=== PATIENT | female | born 1965 | race African-American/Black ===

== ENCOUNTER 2019-06-01 06:35 | Observation (INO) ==
[2019-06-01] MEDS ORDERED: ASPIRIN 325 MG TABLET PO STA (07:15)
[2019-06-01 07:52] LABS: Basophils % 0.6 % (0.0-0.8); Eosinophils # 0.1 10*3/uL (0.0-0.87); Eosinophils % 1.4 % (0.00-10.9); Hematocrit 42.5 VOL% (35.7-47.0); Hemoglobin 13.9 GM/DL (12.0-16.0); Immature Granulocytes % 0.3 %; Immature Granulocytes Absolute 0.01 #; Lymphocytes # 1.5 10*3/uL (1.4-4.0); Lymphocytes % 41.8 % (21.3-54.2); Mean Corpuscular HGB Conc 32.7 GM/DL (32-36); Mean Corpuscular Volume 84.5 FL (87-102); Mean Platelet Volume 9.9 FL (9.6-12.0); Neutrophils % 45.9 % (38.7-73.9); Platelet Count 237 T/CUMM (130-400); Red Blood Count 5.03 MC/CUMM (3.8-5.5); Red Cell Distribution Width 11.9 % (9.3-17.3); White Blood Count 3.6 T/CUMM (4-12)
[2019-06-01 08:11] LABS: Bilirubin,Total 0.9 MG/DL (0.2-1.0); Calcium 9.3 MG/DL (8.5-10.1); Osmolality,Calculated 284.1 MOS/KG (273-304)
[2019-06-01] MEDS ORDERED: SODIUM CHLORIDE 0.9% 1,000 ML IV STA (08:58)
[2019-06-01 09:01] LABS: Apearance,Urine CLEAR (Clear); Bilirubin,Urine Negative (Negative); Blood, Urine Negative (Negative); Glucose,Urine (UA) Negative (Negative); Ketones,Urine Negative (Negative); Mucus,Urine Occasional /LPF (Occasional); Nitrite,Urine Negative (Negative); Protein,Urine Negative; RBC,Urine 1 /HPF (0-4); Squamous Epithelial Cell,Urine Occasional /HPF (0-10); Urine Color Straw (Yellow); Urine Specific Gravity 1.046 (1.001-1.035); Urine Urobilinogen < 2.0 EU/DL (0.2-1.0)
[2019-06-01] MEDS ORDERED: traMADol 50 MG TABLET ONE (09:57)
[2019-06-01] MEDS ORDERED: traMADol 50 MG TABLET PO STA (09:59)
[2019-06-01] MEDS ORDERED: DOCUSATE SODIUM 100 MG CAPSULE PO PRN (10:20)
[2019-06-01] MEDS ORDERED: LORazepam 1 MG TABLET PO PRN (10:43)
[2019-06-01] MEDS ORDERED: LORazepam 2 MG/1 ML VIAL IV STA (10:43)
[2019-06-01] MEDS: ENOXAPARIN 40 MG/0.4 ML SYRINGE SUBCUT SCH (13:00)
[2019-06-01] MEDS: METOPROLOL TARTRATE 25 MG TABLET PO SCH ×2 (13:05→22:11)
[2019-06-01] MEDS: SODIUM CHLORIDE 0.9% 1,000 ML IV SCH (13:05)
[2019-06-01] MEDS: CIPROFLOXACIN INJ 400 MG in PREMIX 1 EACH IV SCH (13:05)
[2019-06-01] MEDS: metroNIDAZOLE INJ 500 MG in PREMIX 1 EACH IV SCH ×2 (14:52→22:12)
[2019-06-01] MEDS ORDERED: MORPHINE 4 MG/1 ML VIAL IV PRN (15:27)
[2019-06-01 15:28] LABS: Cancer Antigen 19-9 2.9 U/ML (0-37); Carcinoembryonic Antigen 1.2 NG/ML (0.0-5.0)
[2019-06-01] MEDS ORDERED: LORazepam 0.5 MG TABLET PO PRN (15:28)
[2019-06-01] MEDS ORDERED: diphenhydrAMINE CAP 25 MG CAPSULE PO PRN (15:29)
[2019-06-01] MEDS: traMADol 50 MG TABLET PO PRN (22:11)
[2019-06-02] MEDS: CIPROFLOXACIN INJ 400 MG in PREMIX 1 EACH IV SCH ×2 (00:45→12:18)
[2019-06-02] MEDS: metroNIDAZOLE INJ 500 MG in PREMIX 1 EACH IV SCH ×3 (06:15→21:49)
[2019-06-02 06:25] LABS: Basophils % 0.4 % (0.0-0.8); Eosinophils # 0.1 10*3/uL (0.0-0.87); Eosinophils % 1.8 % (0.00-10.9); Hematocrit 41.6 VOL% (35.7-47.0); Hemoglobin 13.4 GM/DL (12.0-16.0); Lymphocytes # 1.2 10*3/uL (1.4-4.0); Lymphocytes % 43.1 % (21.3-54.2); Mean Corpuscular HGB Conc 32.2 GM/DL (32-36); Mean Corpuscular Volume 84.6 FL (87-102); Mean Platelet Volume 10.1 FL (9.6-12.0); Monocytes % 10.6 % (1.7-12.7); Neutrophils % 44.1 % (38.7-73.9); Platelet Count 219 T/CUMM (130-400); Red Blood Count 4.92 MC/CUMM (3.8-5.5); Red Cell Distribution Width 11.9 % (9.3-17.3); White Blood Count 2.8 T/CUMM (4-12)
[2019-06-02] MEDS ORDERED: BUPIVACAINE 0.25% /EPI 10 ML VIAL ONE (06:37)
[2019-06-02] MEDS ORDERED: ISOSULFAN BLUE 5 ML VIAL SUBCUT ONE (06:37)
[2019-06-02] MEDS ORDERED: TISSUE ADHESIVE 1 EACH APPLICATOR TOP ONE (06:38)
[2019-06-02] MEDS ORDERED: LIDOCAINE 1% 20 ML VIAL ONE (06:38)
[2019-06-02 06:45] LABS: Hypochromasia 1+; Platelet Estimate Adequate
[2019-06-02 06:54] LABS: Calcium 8.3 MG/DL (8.5-10.1); Osmolality,Calculated 278.3 MOS/KG (273-304)
[2019-06-02] MEDS ORDERED: PROPOFOL 200 MG/20 ML VIAL IV ONE (08:11)
[2019-06-02] MEDS ORDERED: SEVOFLURANE 1 UNIT/15 MINUTE INH ONE (08:11)
[2019-06-02] MEDS ORDERED: LIDOCAINE 2% 5 ML VIAL ONE (08:11)
[2019-06-02] MEDS ORDERED: fentaNYL 100 MCG/2 ML VIAL ONE (08:11)
[2019-06-02] MEDS ORDERED: ONDANSETRON 4 MG/2 ML VIAL ONE ×2 (08:12→08:50)
[2019-06-02] MEDS ORDERED: MIDAZOLAM 2 MG/2 ML VIAL ONE (08:12)
[2019-06-02] MEDS ORDERED: MORPHINE 10 MG/1 ML VIAL ONE (08:50)
[2019-06-02] MEDS: ONDANSETRON 4 MG/2 ML VIAL IV PRN ×2 (08:51→13:24)
[2019-06-02] MEDS ORDERED: ONDANSETRON 4 MG/2 ML VIAL IV PRN (08:52)
[2019-06-02] MEDS ORDERED: MORPHINE 10 MG/1 ML VIAL IV PRN (08:52)
[2019-06-02] MEDS: SODIUM CHLORIDE 0.9% 1,000 ML IV SCH ×4 (09:43→23:39)
[2019-06-02] MEDS: amLODIPine 10 MG TABLET PO SCH (09:51)
[2019-06-02] MEDS: PANTOPRAZOLE 40 MG TABLET PO SCH (09:51)
[2019-06-02] MEDS: METOPROLOL TARTRATE 25 MG TABLET PO SCH ×2 (09:51→21:47)
[2019-06-02] MEDS: ENOXAPARIN 40 MG/0.4 ML SYRINGE SUBCUT SCH (12:18)
[2019-06-02] MEDS ORDERED: METOCLOPRAMIDE 10 MG/2 ML VIAL IV ONE (15:31)
[2019-06-02] MEDS ORDERED: METOCLOPRAMIDE 10 MG/2 ML VIAL IV PRN (15:32)
[2019-06-02] MEDS: traMADol 50 MG TABLET PO PRN (21:46)
[2019-06-02] MEDS: DOCUSATE/SENNA 50-8.6 MG TABLET PO SCH (21:47)
[2019-06-03] MEDS: CIPROFLOXACIN INJ 400 MG in PREMIX 1 EACH IV SCH (02:09)
[2019-06-03 06:02] LABS: Basophils % 0.2 % (0.0-0.8); Eosinophils # 0.1 10*3/uL (0.0-0.87); Eosinophils % 1.4 % (0.00-10.9); Hematocrit 37.5 VOL% (35.7-47.0); Hemoglobin 12.1 GM/DL (12.0-16.0); Immature Granulocytes % 0.2 %; Immature Granulocytes Absolute 0.01 #; Lymphocytes # 1.1 10*3/uL (1.4-4.0); Lymphocytes % 26.8 % (21.3-54.2); Mean Corpuscular HGB Conc 32.3 GM/DL (32-36); Mean Corpuscular Volume 84.8 FL (87-102); Mean Platelet Volume 11.1 FL (9.6-12.0); Monocytes % 10.6 % (1.7-12.7); Neutrophils % 60.8 % (38.7-73.9); Platelet Count 128 T/CUMM (130-400); Red Blood Count 4.42 MC/CUMM (3.8-5.5); Red Cell Distribution Width 11.9 % (9.3-17.3); White Blood Count 4.3 T/CUMM (4-12)
[2019-06-03] MEDS: metroNIDAZOLE INJ 500 MG in PREMIX 1 EACH IV SCH (06:16)
[2019-06-03] MEDS: traMADol 50 MG TABLET PO PRN (06:20)
[2019-06-03] MEDS: amLODIPine 10 MG TABLET PO SCH (08:33)
[2019-06-03] MEDS: METOPROLOL TARTRATE 25 MG TABLET PO SCH (08:33)
[2019-06-03] MEDS: DOCUSATE/SENNA 50-8.6 MG TABLET PO SCH (08:34)
[2019-06-03] MEDS: PANTOPRAZOLE 40 MG TABLET PO SCH (08:34)
[2019-06-03] MEDS ORDERED: METOCLOPRAMIDE 10 MG TABLET PO SCH (11:30)
[2019-06-03] MEDS: ENOXAPARIN 40 MG/0.4 ML SYRINGE SUBCUT SCH (12:06)
[2019-06-03 13:35] VITALS: BP 112/68
== END 2019-06-03 13:45 | disposition home or self-care (01) ==
LOC: N.ED 06:35 → N.EDINP 06:35 → SUATTDRO 10:36 → N.5E 11:18
PROVIDERS: ADMIT Internal Medicine; ATTEND Family Medicine

== ENCOUNTER 2019-07-07 06:50 | Observation (INO) ==
[2019-07-07 07:49] LABS: Basophils % 0.2 % (0.0-0.8); Eosinophils % 0.7 % (0.00-10.9); Hemoglobin 14.1 GM/DL (12.0-16.0); Immature Granulocytes % 0.4 %; Immature Granulocytes Absolute 0.02 #; Lymphocytes # 1.1 10*3/uL (1.4-4.0); Lymphocytes % 21.1 % (21.3-54.2); Mean Corpuscular HGB Conc 32.8 GM/DL (32-36); Mean Corpuscular Volume 83.3 FL (87-102); Monocytes % 2.4 % (1.7-12.7); Neutrophils % 75.2 % (38.7-73.9); Platelet Count 185 T/CUMM (130-400); Red Blood Count 5.16 MC/CUMM (3.8-5.5); Red Cell Distribution Width 11.7 % (9.3-17.3); White Blood Count 5.4 T/CUMM (4-12)
[2019-07-07 08:11] LABS: Calcium 9.6 MG/DL (8.5-10.1); Osmolality,Calculated 277.7 MOS/KG (273-304)
[2019-07-07] MEDS ORDERED: VANCOMYCIN INJ 1,750 MG in SODIUM CHLORIDE 0.9% 250 ML IV ONE (08:37)
[2019-07-07] MEDS ORDERED: ONDANSETRON 4 MG/2 ML VIAL IV PRN (08:38)
[2019-07-07] MEDS ORDERED: KETOROLAC 10 MG TABLET PO PRN (08:38)
[2019-07-07] MEDS ORDERED: IBUPROFEN 400 MG TABLET PO PRN (08:38)
[2019-07-07] MEDS ORDERED: BISACODYL 5 MG TABLET PO PRN (08:38)
[2019-07-07] MEDS ORDERED: PROCHLORPERAZINE 10 MG TABLET PO PRN (09:00)
[2019-07-07] MEDS ORDERED: LIDOCAINE 1%/EPI INJ 20 ML VIAL ONE (09:38)
[2019-07-07] MEDS ORDERED: BUPIVACAINE MPF 0.25% 30 ML VIAL ONE (09:38)
[2019-07-07] MEDS ORDERED: TISSUE ADHESIVE 1 EACH APPLICATOR TOP ONE (09:38)
[2019-07-07] MEDS: DOCUSATE/SENNA 50-8.6 MG TABLET PO SCH ×2 (10:28→20:15)
[2019-07-07] MEDS: amLODIPine 10 MG TABLET PO SCH (10:28)
[2019-07-07] MEDS: PANTOPRAZOLE 40 MG TABLET PO SCH (10:28)
[2019-07-07] MEDS: hydroCHLOROthiazide 25 MG TABLET PO SCH (10:28)
[2019-07-07] MEDS: CITALOPRAM 20 MG TABLET PO SCH (10:28)
[2019-07-07] MEDS: ACETAMINOPHEN/CODEINE 300-30 MG TABLET PO PRN ×3 (10:29→20:15)
[2019-07-07] MEDS: METOPROLOL TARTRATE 25 MG TABLET PO SCH ×2 (10:29→20:14)
[2019-07-07] MEDS ORDERED: VANCOMYCIN INJ 2,000 MG in SODIUM CHLORIDE 0.9% 500 ML IV ONE (10:30)
[2019-07-07] MEDS: MEPERIDINE 25 MG/1 ML VIAL IV PRN ×4 (10:30→22:43)
[2019-07-07] MEDS: LACTATED RINGERS 1,000 ML IV SCH ×2 (10:39→18:15)
[2019-07-07] MEDS ORDERED: LACTATED RINGERS 1,000 ML IV ONE (11:51)
[2019-07-07] MEDS: METOCLOPRAMIDE 10 MG TABLET PO SCH ×3 (12:55→20:14)
[2019-07-07] MEDS: VANCOMYCIN INJ 1,750 MG in SODIUM CHLORIDE 0.9% 500 ML IV SCH (22:50)
[2019-07-08] MEDS: MEPERIDINE 25 MG/1 ML VIAL IV PRN ×2 (01:26→07:43)
[2019-07-08 01:39] LABS: Basophils % 0.2 % (0.0-0.8); Hematocrit 39.3 VOL% (35.7-47.0); Hemoglobin 13.1 GM/DL (12.0-16.0); Immature Granulocytes % 0.2 %; Immature Granulocytes Absolute 0.01 #; Lymphocytes # 0.9 10*3/uL (1.4-4.0); Lymphocytes % 22.6 % (21.3-54.2); Mean Corpuscular HGB Conc 33.3 GM/DL (32-36); Mean Corpuscular Volume 81.9 FL (87-102); Mean Platelet Volume 10.1 FL (9.6-12.0); Monocytes % 3.2 % (1.7-12.7); Neutrophils % 72.8 % (38.7-73.9); Platelet Count 196 T/CUMM (130-400); Red Cell Distribution Width 11.5 % (9.3-17.3); White Blood Count 4.1 T/CUMM (4-12)
[2019-07-08 01:50] LABS: Calcium 8.6 MG/DL (8.5-10.1); Osmolality,Calculated 273.1 MOS/KG (273-304)
[2019-07-08] MEDS: LACTATED RINGERS 1,000 ML IV SCH ×2 (04:16→11:26)
[2019-07-08 05:07] LABS: Platelet Estimate Decreased; Polychromasia Few
[2019-07-08] MEDS: METOCLOPRAMIDE 10 MG TABLET PO SCH ×2 (07:44→12:52)
[2019-07-08] MEDS: hydroCHLOROthiazide 25 MG TABLET PO SCH (09:18)
[2019-07-08] MEDS: VANCOMYCIN INJ 1,750 MG in SODIUM CHLORIDE 0.9% 500 ML IV SCH (09:18)
[2019-07-08] MEDS: amLODIPine 10 MG TABLET PO SCH (09:18)
[2019-07-08] MEDS: DOCUSATE/SENNA 50-8.6 MG TABLET PO SCH (09:18)
[2019-07-08] MEDS: PANTOPRAZOLE 40 MG TABLET PO SCH (09:18)
[2019-07-08] MEDS: METOPROLOL TARTRATE 25 MG TABLET PO SCH (09:18)
[2019-07-08] MEDS: CITALOPRAM 20 MG TABLET PO SCH (09:18)
[2019-07-08] MEDS: ACETAMINOPHEN/CODEINE 300-30 MG TABLET PO PRN (11:46)
[2019-07-08 13:24] VITALS: BP 142/87
== END 2019-07-08 14:40 | disposition home or self-care (01) ==
LOC: N.ED 06:50 → N.EDINP 06:50 → N.3E 09:33
PROVIDERS: ADMIT Surgery; ATTEND Surgery

== ENCOUNTER 2019-07-21 18:32 | Inpatient (IN) ==
[2019-07-21 19:55] LABS: Basophils % 0.3 % (0.0-0.8); Eosinophils % 0.3 % (0.00-10.9); Hematocrit 38.3 VOL% (35.7-47.0); Hemoglobin 12.6 GM/DL (12.0-16.0); Immature Granulocytes % 0.3 %; Immature Granulocytes Absolute 0.01 #; Lymphocytes % 27.8 % (21.3-54.2); Mean Corpuscular HGB Conc 32.9 GM/DL (32-36); Mean Corpuscular Volume 82.4 FL (87-102); Mean Platelet Volume 10.8 FL (9.6-12.0); Monocytes % 2.7 % (1.7-12.7); Neutrophils % 68.6 % (38.7-73.9); Platelet Count 304 T/CUMM (130-400); Red Blood Count 4.65 MC/CUMM (3.8-5.5); Red Cell Distribution Width 11.6 % (9.3-17.3); White Blood Count 3.7 T/CUMM (4-12)
[2019-07-21 20:02] LABS: Alanine Aminotransferase 45 U/L (13-56); Albumin 3.3 G/DL (3.4-5.0); Alkaline Phosphatase 125 U/L (45-117); Aspartate Amino Transferase 33 U/L (0-37); Bilirubin,Total < 0.39 MG/DL (0.2-1.0); Blood Urea Nitrogen 12 MG/DL (7-18); Estimated Glom Filtration Rate 116 ML/MIN; Glucose 238 MG/DL (74-106); Osmolality,Calculated 280.8 MOS/KG (273-304); Total Protein 7.7 G/DL (6.4-8.3)
[2019-07-21] MEDS ORDERED: MORPHINE 4 MG/1 ML VIAL IV STA ×2 (20:28→22:45)
[2019-07-21] MEDS ORDERED: ONDANSETRON 4 MG/2 ML VIAL IV ONE (20:28)
[2019-07-21] MEDS ORDERED: PIPERACILLIN/TAZOBACTAM 3,375 MG in SODIUM CHLORIDE 0.9% 100 ML IV STA (21:05)
[2019-07-22] MEDS ORDERED: METOPROLOL TARTRATE 25 MG TABLET PO ONE (01:52)
[2019-07-22] MEDS ORDERED: amLODIPine 10 MG TABLET PO ONE (01:53)
[2019-07-22] MEDS: MORPHINE 4 MG/1 ML VIAL IV PRN ×5 (02:27→22:42)
[2019-07-22] MEDS: VANCOMYCIN INJ 1,750 MG in SODIUM CHLORIDE 0.9% 500 ML IV SCH ×2 (03:33→18:13)
[2019-07-22 04:47] LABS: Basophils % 0.3 % (0.0-0.8); Eosinophils % 0.3 % (0.00-10.9); Hematocrit 34.7 VOL% (35.7-47.0); Hemoglobin 11.4 GM/DL (12.0-16.0); Immature Granulocytes % 0.3 %; Immature Granulocytes Absolute 0.01 #; Lymphocytes % 31.4 % (21.3-54.2); Mean Corpuscular HGB Conc 32.9 GM/DL (32-36); Mean Corpuscular Volume 82.2 FL (87-102); Mean Platelet Volume 10.8 FL (9.6-12.0); Monocytes % 2.5 % (1.7-12.7); Neutrophils % 65.2 % (38.7-73.9); Platelet Count 288 T/CUMM (130-400); Red Blood Count 4.22 MC/CUMM (3.8-5.5); Red Cell Distribution Width 11.5 % (9.3-17.3); White Blood Count 3.2 T/CUMM (4-12)
[2019-07-22 05:05] LABS: Calcium 8.5 MG/DL (8.5-10.1); Osmolality,Calculated 284.4 MOS/KG (273-304)
[2019-07-22] MEDS: PIPERACILLIN/TAZOBACTAM 3,375 MG in SODIUM CHLORIDE 0.9% 100 ML IV SCH ×3 (05:42→21:30)
[2019-07-22] MEDS: ENOXAPARIN 40 MG/0.4 ML SYRINGE SUBCUT SCH (09:13)
[2019-07-22] MEDS: PANTOPRAZOLE 40 MG TABLET PO SCH (09:14)
[2019-07-22] MEDS ORDERED: ceFAZolin 1,000 MG in SYRINGE 1 EACH IV ONE (11:21)
[2019-07-22] MEDS: SODIUM CHLORIDE 0.9% 1,000 ML IV SCH ×2 (14:07→14:17)
[2019-07-23] MEDS: SODIUM CHLORIDE 0.9% 1,000 ML IV SCH ×3 (01:40→23:00)
[2019-07-23] MEDS: MORPHINE 4 MG/1 ML VIAL IV PRN ×2 (02:03→09:33)
[2019-07-23] MEDS: oxyCODONE/ACETAMINOPHEN 5-325 MG TABLET PO PRN ×3 (02:05→23:27)
[2019-07-23] MEDS ORDERED: DIAZEPAM 5 MG TABLET PO ONE (04:47)
[2019-07-23] MEDS ORDERED: FAMOTIDINE 20 MG TABLET PO ONE (04:48)
[2019-07-23] MEDS: VANCOMYCIN INJ 1,750 MG in SODIUM CHLORIDE 0.9% 500 ML IV SCH ×2 (05:01→19:48)
[2019-07-23] MEDS ORDERED: TISSUE ADHESIVE 1 EACH APPLICATOR TOP ONE (06:42)
[2019-07-23] MEDS ORDERED: PROMETHAZINE INJ 25 MG in SODIUM CHLORIDE 0.9% 50 ML IV PRN (06:59)
[2019-07-23] MEDS ORDERED: diphenhydrAMINE 50 MG/1 ML VIAL IV PRN (06:59)
[2019-07-23] MEDS ORDERED: ONDANSETRON 4 MG/2 ML VIAL IV PRN (06:59)
[2019-07-23] MEDS ORDERED: MEPERIDINE 25 MG/1 ML VIAL IV PRN (06:59)
[2019-07-23] MEDS ORDERED: BACITRACIN OINT 0.9 GM PACK TOP ONE (07:38)
[2019-07-23] MEDS: PANTOPRAZOLE 40 MG TABLET PO SCH ×2 (08:04→09:38)
[2019-07-23] MEDS ORDERED: PROPOFOL 200 MG/20 ML VIAL IV ONE (08:11)
[2019-07-23] MEDS ORDERED: LIDOCAINE 2% 5 ML VIAL ONE (08:11)
[2019-07-23] MEDS ORDERED: MIDAZOLAM 2 MG/2 ML VIAL ONE (08:11)
[2019-07-23] MEDS ORDERED: SEVOFLURANE 1 UNIT/15 MINUTE INH ONE (08:11)
[2019-07-23] MEDS ORDERED: PHENYLEPHRINE 1 MG/10 ML SYRINGE IV ONE (08:11)
[2019-07-23] MEDS: PIPERACILLIN/TAZOBACTAM 3,375 MG in SODIUM CHLORIDE 0.9% 100 ML IV SCH ×2 (09:37→16:04)
[2019-07-23] MEDS: ENOXAPARIN 40 MG/0.4 ML SYRINGE SUBCUT SCH (09:38)
[2019-07-23] MEDS: CITALOPRAM 20 MG TABLET PO SCH (09:38)
[2019-07-23] MEDS: LACTOBACILLUS ACIDOPHILUS/BULGARICUS CAPLET PO SCH (09:38)
[2019-07-23] MEDS: hydroCHLOROthiazide 25 MG TABLET PO SCH (09:38)
[2019-07-23] MEDS: amLODIPine 10 MG TABLET PO SCH (09:39)
[2019-07-23] MEDS: ONDANSETRON 4 MG/2 ML VIAL IV PRN (16:04)
[2019-07-24] MEDS: PIPERACILLIN/TAZOBACTAM 3,375 MG in SODIUM CHLORIDE 0.9% 100 ML IV SCH (01:45)
[2019-07-24] MEDS: MORPHINE 4 MG/1 ML VIAL IV PRN ×2 (05:10→09:48)
[2019-07-24] MEDS: oxyCODONE/ACETAMINOPHEN 5-325 MG TABLET PO PRN (05:40)
[2019-07-24] MEDS: ONDANSETRON 4 MG/2 ML VIAL IV PRN (07:44)
[2019-07-24] MEDS: VANCOMYCIN INJ 1,750 MG in SODIUM CHLORIDE 0.9% 500 ML IV SCH (09:35)
[2019-07-24] MEDS: ENOXAPARIN 40 MG/0.4 ML SYRINGE SUBCUT SCH (09:36)
[2019-07-24] MEDS: CITALOPRAM 20 MG TABLET PO SCH (09:37)
[2019-07-24] MEDS: LACTOBACILLUS ACIDOPHILUS/BULGARICUS CAPLET PO SCH (09:37)
[2019-07-24] MEDS: hydroCHLOROthiazide 25 MG TABLET PO SCH (09:37)
[2019-07-24] MEDS: amLODIPine 10 MG TABLET PO SCH (09:37)
[2019-07-24] MEDS: PANTOPRAZOLE 40 MG TABLET PO SCH ×2 (09:59)
[2019-07-24 14:05] VITALS: BP 115/71
== END 2019-07-24 12:54 | disposition home or self-care (01) | DRG 315 ==
LOC: N.ED 18:32 → N.EDINP 23:29 → SUATTDRO 23:29 → N.4E 23:33
PROVIDERS: ADMIT Internal Medicine Geriatric Medicine; ATTEND Internal Medicine Nephrology

== ENCOUNTER 2019-08-30 16:31 | Inpatient (IN) ==
[2019-08-30] MEDS ORDERED: MEROPENEM 1,000 MG in SODIUM CHLORIDE 0.9% 100 ML IV STA (16:56)
[2019-08-30] MEDS ORDERED: SODIUM CHLORIDE 0.9% 1,000 ML IV STA ×2 (16:56→17:55)
[2019-08-30] MEDS ORDERED: VANCOMYCIN INJ 1,500 MG in SODIUM CHLORIDE 0.9% 250 ML IV STA (16:56)
[2019-08-30] MEDS ORDERED: MORPHINE 4 MG/1 ML VIAL IV STA (17:03)
[2019-08-30] MEDS ORDERED: ONDANSETRON 4 MG/2 ML VIAL ONE (17:28)
[2019-08-30] MEDS ORDERED: ONDANSETRON 4 MG/2 ML VIAL IV STA (17:30)
[2019-08-30] MEDS ORDERED: ACETAMINOPHEN 500 MG TABLET PO STA (17:45)
[2019-08-30 17:46] LABS: INR 0.9; PT Patient Result 10.2 SECS (9.6-12.2); Partial Thromboplastin Time 30.3 SECS (20.8-36.0)
[2019-08-30] MEDS ORDERED: ACETAMINOPHEN 500 MG TABLET ONE (17:46)
[2019-08-30 17:52] LABS: Basophils % 0.3 % (0.0-0.8); Eosinophils % 0.3 % (0.00-10.9); Hematocrit 29.8 VOL% (35.7-47.0); Hemoglobin 9.7 GM/DL (12.0-16.0); Immature Granulocytes % 0.6 %; Immature Granulocytes Absolute 0.06 #; Lymphocytes # 1.2 10*3/uL (1.4-4.0); Lymphocytes % 11.8 % (21.3-54.2); Mean Corpuscular HGB Conc 32.6 GM/DL (32-36); Mean Corpuscular Volume 82.1 FL (87-102); Mean Platelet Volume 11.1 FL (9.6-12.0); Monocytes % 8.8 % (1.7-12.7); Neutrophils % 78.2 % (38.7-73.9); Platelet Count 253 T/CUMM (130-400); Red Blood Count 3.63 MC/CUMM (3.8-5.5); Red Cell Distribution Width 15.6 % (9.3-17.3)
[2019-08-30 18:00] LABS: Alanine Aminotransferase 18 U/L (13-56); Albumin 2.7 G/DL (3.4-5.0); Alkaline Phosphatase 121 U/L (45-117); Aspartate Amino Transferase 22 U/L (0-37); Blood Urea Nitrogen 7 MG/DL (7-18); Calcium 8.9 MG/DL (8.5-10.1); Estimated Glom Filtration Rate 99 ML/MIN; Glucose 168 MG/DL (74-106); Osmolality,Calculated 274.8 MOS/KG (273-304); Total Protein 7.3 G/DL (6.4-8.3); Troponin I < 0.015 NG/ML (0.00-0.045)
[2019-08-30] MEDS ORDERED: POTASSIUM BICARB EFFERVESCENT 25 MEQ TABLET PO ONE (18:17)
[2019-08-30] MEDS ORDERED: DOCUSATE SODIUM 100 MG CAPSULE PO PRN (18:50)
[2019-08-30 19:02] LABS: Sedimentation Rate-Westergren 118 MM/HR (0-30)
[2019-08-30] MEDS ORDERED: PROCHLORPERAZINE 10 MG TABLET PO PRN (20:33)
[2019-08-30] MEDS ORDERED: ALPRAZolam 0.25 MG TABLET PO PRN (20:33)
[2019-08-30] MEDS: DEXT 5% NACL 0.45% KCL 20 MEQ 20 MEQ/1,000 ML BAG IV SCH (21:34)
[2019-08-30] MEDS: METOPROLOL TARTRATE 25 MG TABLET PO SCH (21:34)
[2019-08-30] MEDS: ENOXAPARIN 40 MG/0.4 ML SYRINGE SUBCUT SCH (21:34)
[2019-08-30] MEDS: DOCUSATE/SENNA 50-8.6 MG TABLET PO SCH (21:55)
[2019-08-30] MEDS: MORPHINE 4 MG/1 ML VIAL IV PRN (22:18)
[2019-08-31] MEDS: MORPHINE 4 MG/1 ML VIAL IV PRN ×5 (01:04→17:27)
[2019-08-31] MEDS: MEROPENEM 500 MG in SODIUM CHLORIDE 0.9% 100 ML IV SCH ×5 (03:06→21:13)
[2019-08-31] MEDS: ACETAMINOPHEN 325 MG TABLET PO PRN ×3 (03:55→18:02)
[2019-08-31] MEDS ORDERED: oxyCODONE/ACETAMINOPHEN 5-325 MG TABLET PO ONE (04:06)
[2019-08-31] MEDS: VANCOMYCIN INJ 1,500 MG in SODIUM CHLORIDE 0.9% 500 ML IV SCH ×2 (06:50→18:03)
[2019-08-31 07:39] LABS: Basophils % 0.5 % (0.0-0.8); Eosinophils # 0.1 10*3/uL (0.0-0.87); Eosinophils % 0.8 % (0.00-10.9); Hematocrit 27.4 VOL% (35.7-47.0); Hemoglobin 8.7 GM/DL (12.0-16.0); Immature Granulocytes % 0.5 %; Immature Granulocytes Absolute 0.03 #; Lymphocytes # 0.8 10*3/uL (1.4-4.0); Lymphocytes % 13.4 % (21.3-54.2); Mean Corpuscular HGB Conc 31.8 GM/DL (32-36); Mean Corpuscular Volume 83.3 FL (87-102); Mean Platelet Volume 9.8 FL (9.6-12.0); Monocytes % 10.2 % (1.7-12.7); Neutrophils % 74.6 % (38.7-73.9); Platelet Count 226 T/CUMM (130-400); Red Blood Count 3.29 MC/CUMM (3.8-5.5); White Blood Count 6.3 T/CUMM (4-12)
[2019-08-31 07:56] LABS: Albumin 2.2 G/DL (3.4-5.0); Bilirubin,Total 0.5 MG/DL (0.2-1.0); Calcium 8.3 MG/DL (8.5-10.1); Osmolality,Calculated 280.4 MOS/KG (273-304); Total Protein 6.2 G/DL (6.4-8.3)
[2019-08-31 08:24] LABS: Apearance,Urine Slightly Hazy (Clear); Bacteria,Urine Occasional /HPF (Few); Bilirubin,Urine Negative (Negative); Blood, Urine Negative (Negative); Glucose,Urine (UA) Negative (Negative); Ketones,Urine 5 mg/dL (Negative); Mucus,Urine Occasional /LPF (Occasional); Nitrite,Urine Negative (Negative); Protein,Urine Negative; RBC,Urine 1 /HPF (0-4); Squamous Epithelial Cell,Urine Occasional /HPF (0-10); Urine Color Yellow (Yellow); Urine Specific Gravity 1.015 (1.001-1.035); WBC,Urine 1 /HPF (0-6)
[2019-08-31] MEDS: METOPROLOL TARTRATE 25 MG TABLET PO SCH ×2 (08:35→21:20)
[2019-08-31] MEDS: amLODIPine 10 MG TABLET PO SCH (08:35)
[2019-08-31] MEDS ORDERED: PROPOFOL 200 MG/20 ML VIAL IV ONE (11:32)
[2019-08-31] MEDS ORDERED: fentaNYL 100 MCG/2 ML VIAL ONE (11:33)
[2019-08-31] MEDS ORDERED: MIDAZOLAM 2 MG/2 ML VIAL ONE (11:33)
[2019-08-31] MEDS ORDERED: LIDOCAINE 2% 5 ML VIAL ONE (11:33)
[2019-08-31] MEDS ORDERED: SEVOFLURANE 1 UNIT/15 MINUTE INH ONE (11:33)
[2019-08-31] MEDS ORDERED: SODIUM CHLORIDE 0.9% 100 ML IV ONE (11:33)
[2019-08-31] MEDS ORDERED: ONDANSETRON 4 MG/2 ML VIAL ONE (11:33)
[2019-08-31] MEDS ORDERED: PHENYLEPHRINE 10 MG/1 ML VIAL IV ONE (11:33)
[2019-08-31] MEDS ORDERED: MEPERIDINE 25 MG/1 ML VIAL ONE (11:46)
[2019-08-31] MEDS ORDERED: MEPERIDINE 25 MG/1 ML VIAL IV PRN (11:51)
[2019-08-31] MEDS: DOCUSATE/SENNA 50-8.6 MG TABLET PO SCH ×2 (13:09→21:20)
[2019-08-31] MEDS: CHOLECALCIFEROL 1,000 UNIT TABLET PO SCH (13:16)
[2019-08-31] MEDS: SERTRALINE 50 MG TABLET PO SCH (13:16)
[2019-08-31] MEDS ORDERED: ERGOCALCIFEROL 50,000 UNIT CAPSULE PO ONE (14:30)
[2019-08-31] MEDS: GABAPENTIN 400 MG CAPSULE PO SCH ×3 (17:13→21:20)
[2019-08-31] MEDS: ASCORBIC ACID 500 MG TABLET PO SCH ×3 (17:13→21:20)
[2019-08-31] MEDS: ZINC GLUCONATE 50 MG TABLET PO SCH ×2 (17:13→19:21)
[2019-08-31] MEDS: DEXT 5% NACL 0.45% KCL 20 MEQ 20 MEQ/1,000 ML BAG IV SCH ×2 (17:14)
[2019-08-31] MEDS: ENOXAPARIN 40 MG/0.4 ML SYRINGE SUBCUT SCH (21:20)
[2019-09-01] MEDS: DEXT 5% NACL 0.45% KCL 20 MEQ 20 MEQ/1,000 ML BAG IV SCH ×2 (02:45→16:36)
[2019-09-01] MEDS: MEROPENEM 500 MG in SODIUM CHLORIDE 0.9% 100 ML IV SCH ×3 (02:45→15:18)
[2019-09-01] MEDS: MORPHINE 4 MG/1 ML VIAL IV PRN ×3 (02:45→22:24)
[2019-09-01 05:23] LABS: Basophils % 0.4 % (0.0-0.8); Eosinophils # 0.1 10*3/uL (0.0-0.87); Eosinophils % 1.2 % (0.00-10.9); Hematocrit 25.9 VOL% (35.7-47.0); Hemoglobin 8.1 GM/DL (12.0-16.0); Immature Granulocytes % 0.4 %; Immature Granulocytes Absolute 0.02 #; Lymphocytes % 19.5 % (21.3-54.2); Mean Corpuscular HGB Conc 31.3 GM/DL (32-36); Mean Corpuscular Volume 84.4 FL (87-102); Mean Platelet Volume 10.5 FL (9.6-12.0); Monocytes % 13.3 % (1.7-12.7); Neutrophils % 65.2 % (38.7-73.9); Platelet Count 277 T/CUMM (130-400); Red Blood Count 3.07 MC/CUMM (3.8-5.5); Red Cell Distribution Width 16.4 % (9.3-17.3); White Blood Count 5.2 T/CUMM (4-12)
[2019-09-01 05:52] LABS: Calcium 8.4 MG/DL (8.5-10.1); Osmolality,Calculated 286.6 MOS/KG (273-304)
[2019-09-01] MEDS: VANCOMYCIN INJ 1,500 MG in SODIUM CHLORIDE 0.9% 500 ML IV SCH (06:41)
[2019-09-01] MEDS: MULTIVITAMIN (BEROCCA) TABLET PO SCH (08:48)
[2019-09-01] MEDS: oxyCODONE/ACETAMINOPHEN 5-325 MG TABLET PO PRN ×3 (08:48→21:41)
[2019-09-01] MEDS: DOCUSATE/SENNA 50-8.6 MG TABLET PO SCH (08:49)
[2019-09-01] MEDS: GABAPENTIN 400 MG CAPSULE PO SCH ×3 (08:49→21:41)
[2019-09-01] MEDS: ASCORBIC ACID 500 MG TABLET PO SCH ×2 (08:49→21:40)
[2019-09-01] MEDS: METOPROLOL TARTRATE 25 MG TABLET PO SCH ×2 (08:49→21:41)
[2019-09-01] MEDS: CHOLECALCIFEROL 1,000 UNIT TABLET PO SCH (08:49)
[2019-09-01] MEDS: amLODIPine 10 MG TABLET PO SCH (08:49)
[2019-09-01] MEDS: SERTRALINE 50 MG TABLET PO SCH (08:49)
[2019-09-01] MEDS: ZINC GLUCONATE 50 MG TABLET PO SCH (12:02)
[2019-09-01] MEDS: CYPROHEPTADINE 4 MG TABLET PO SCH ×2 (15:17→21:40)
[2019-09-01] MEDS: PIPERACILLIN/TAZOBACTAM 3,375 MG in SODIUM CHLORIDE 0.9% 100 ML IV SCH (18:07)
[2019-09-01] MEDS: ENOXAPARIN 40 MG/0.4 ML SYRINGE SUBCUT SCH (21:41)
[2019-09-01] MEDS: DOCUSATE SODIUM 100 MG CAPSULE PO SCH (21:41)
[2019-09-01] MEDS: POLYETHYLENE GLYCOL POWDER 17 GM PACK PO SCH (21:43)
[2019-09-02] MEDS: DEXT 5% NACL 0.45% KCL 20 MEQ 20 MEQ/1,000 ML BAG IV SCH ×3 (00:32→20:02)
[2019-09-02] MEDS: PIPERACILLIN/TAZOBACTAM 3,375 MG in SODIUM CHLORIDE 0.9% 100 ML IV SCH ×3 (00:33→20:02)
[2019-09-02] MEDS: oxyCODONE/ACETAMINOPHEN 5-325 MG TABLET PO PRN ×4 (03:59→20:05)
[2019-09-02 06:07] LABS: Basophils % 0.5 % (0.0-0.8); Eosinophils # 0.1 10*3/uL (0.0-0.87); Eosinophils % 1.7 % (0.00-10.9); Hematocrit 26.7 VOL% (35.7-47.0); Hemoglobin 8.1 GM/DL (12.0-16.0); Immature Granulocytes % 0.5 %; Immature Granulocytes Absolute 0.03 #; Lymphocytes # 1.2 10*3/uL (1.4-4.0); Lymphocytes % 20.9 % (21.3-54.2); Mean Corpuscular HGB Conc 30.3 GM/DL (32-36); Mean Corpuscular Volume 86.7 FL (87-102); Mean Platelet Volume 10.4 FL (9.6-12.0); Monocytes % 11.6 % (1.7-12.7); Neutrophils % 64.8 % (38.7-73.9); Platelet Count 338 T/CUMM (130-400); Red Blood Count 3.08 MC/CUMM (3.8-5.5); Red Cell Distribution Width 16.4 % (9.3-17.3); White Blood Count 5.8 T/CUMM (4-12)
[2019-09-02 06:09] LABS: Basophils % 0.7 % (0.0-0.8); Eosinophils # 0.1 10*3/uL (0.0-0.87); Eosinophils % 2.1 % (0.00-10.9); Hematocrit 26.8 VOL% (35.7-47.0); Hemoglobin 8.1 GM/DL (12.0-16.0); Immature Granulocytes % 0.7 %; Immature Granulocytes Absolute 0.04 #; Lymphocytes # 1.2 10*3/uL (1.4-4.0); Lymphocytes % 21.4 % (21.3-54.2); Mean Corpuscular HGB Conc 30.2 GM/DL (32-36); Mean Corpuscular Volume 86.5 FL (87-102); Mean Platelet Volume 10.4 FL (9.6-12.0); Monocytes % 10.8 % (1.7-12.7); Neutrophils % 64.3 % (38.7-73.9); Platelet Count 325 T/CUMM (130-400); Red Cell Distribution Width 16.3 % (9.3-17.3); White Blood Count 5.7 T/CUMM (4-12)
[2019-09-02 06:29] LABS: Platelet Estimate Normal; Polychromasia Few
[2019-09-02 06:33] LABS: Calcium 8.6 MG/DL (8.5-10.1); Osmolality,Calculated 281.1 MOS/KG (273-304)
[2019-09-02 06:36] LABS: % Iron Saturation 12.6 % (18-50); Ferritin 1126.3 ng/ml (8-252)
[2019-09-02 06:44] LABS: Vitamin B12 1993 PG/ML (211-911)
[2019-09-02 07:27] LABS: Sedimentation Rate-Westergren 126 MM/HR (0-30)
[2019-09-02] MEDS: LINACLOTIDE 145 MCG CAPSULE PO SCH (09:13)
[2019-09-02] MEDS: CYPROHEPTADINE 4 MG TABLET PO SCH ×3 (09:14→20:05)
[2019-09-02] MEDS: MULTIVITAMIN (BEROCCA) TABLET PO SCH (09:14)
[2019-09-02] MEDS: DOCUSATE SODIUM 100 MG CAPSULE PO SCH ×2 (09:14→20:05)
[2019-09-02] MEDS: CHOLECALCIFEROL 1,000 UNIT TABLET PO SCH (09:14)
[2019-09-02] MEDS: amLODIPine 10 MG TABLET PO SCH (09:14)
[2019-09-02] MEDS: GABAPENTIN 400 MG CAPSULE PO SCH ×3 (09:15→20:05)
[2019-09-02] MEDS: METOPROLOL TARTRATE 25 MG TABLET PO SCH ×2 (09:15→20:04)
[2019-09-02] MEDS: ASCORBIC ACID 500 MG TABLET PO SCH ×2 (09:15→20:09)
[2019-09-02] MEDS: SERTRALINE 50 MG TABLET PO SCH (09:15)
[2019-09-02] MEDS: MORPHINE 4 MG/1 ML VIAL IV PRN ×2 (09:16→21:58)
[2019-09-02] MEDS: ONDANSETRON 4 MG/2 ML VIAL IV PRN (09:16)
[2019-09-02] MEDS: ZINC GLUCONATE 50 MG TABLET PO SCH (09:16)
[2019-09-02] MEDS: POLYETHYLENE GLYCOL POWDER 17 GM PACK PO SCH ×2 (09:17→20:05)
[2019-09-02] MEDS: MAGNESIUM SULF RIDER 2 GM in PREMIX 1 EACH IV ONE ×2 (10:57→15:05)
[2019-09-02] MEDS: ENOXAPARIN 40 MG/0.4 ML SYRINGE SUBCUT SCH (20:04)
[2019-09-03] MEDS: oxyCODONE/ACETAMINOPHEN 5-325 MG TABLET PO PRN ×6 (00:07→22:22)
[2019-09-03] MEDS: MORPHINE 4 MG/1 ML VIAL IV PRN ×3 (02:40→10:23)
[2019-09-03] MEDS: PIPERACILLIN/TAZOBACTAM 3,375 MG in SODIUM CHLORIDE 0.9% 100 ML IV SCH (04:07)
[2019-09-03 05:12] LABS: Basophils % 0.6 % (0.0-0.8); Eosinophils # 0.1 10*3/uL (0.0-0.87); Hematocrit 25.4 VOL% (35.7-47.0); Hemoglobin 7.9 GM/DL (12.0-16.0); Immature Granulocytes % 0.6 %; Immature Granulocytes Absolute 0.03 #; Lymphocytes # 1.1 10*3/uL (1.4-4.0); Lymphocytes % 20.8 % (21.3-54.2); Mean Corpuscular HGB Conc 31.1 GM/DL (32-36); Mean Corpuscular Volume 84.1 FL (87-102); Mean Platelet Volume 10.2 FL (9.6-12.0); Monocytes % 11.3 % (1.7-12.7); Neutrophils % 64.7 % (38.7-73.9); Platelet Count 360 T/CUMM (130-400); Red Blood Count 3.02 MC/CUMM (3.8-5.5); White Blood Count 5.4 T/CUMM (4-12)
[2019-09-03 05:39] LABS: Calcium 8.8 MG/DL (8.5-10.1); Osmolality,Calculated 278.3 MOS/KG (273-304)
[2019-09-03] MEDS: DEXT 5% NACL 0.45% KCL 20 MEQ 20 MEQ/1,000 ML BAG IV SCH ×2 (05:42→16:23)
[2019-09-03] MEDS: CYPROHEPTADINE 4 MG TABLET PO SCH ×3 (08:17→20:47)
[2019-09-03] MEDS: ZINC GLUCONATE 50 MG TABLET PO SCH (08:17)
[2019-09-03] MEDS: GABAPENTIN 400 MG CAPSULE PO SCH ×3 (08:17→20:47)
[2019-09-03] MEDS: LINACLOTIDE 145 MCG CAPSULE PO SCH (08:17)
[2019-09-03] MEDS: amLODIPine 10 MG TABLET PO SCH (08:17)
[2019-09-03] MEDS: CHOLECALCIFEROL 1,000 UNIT TABLET PO SCH (08:17)
[2019-09-03] MEDS: ASCORBIC ACID 500 MG TABLET PO SCH ×2 (08:17→20:47)
[2019-09-03] MEDS: SERTRALINE 50 MG TABLET PO SCH (08:17)
[2019-09-03] MEDS: MULTIVITAMIN (BEROCCA) TABLET PO SCH (08:17)
[2019-09-03] MEDS: DOCUSATE SODIUM 100 MG CAPSULE PO SCH ×2 (08:17→20:47)
[2019-09-03] MEDS: METOPROLOL TARTRATE 25 MG TABLET PO SCH ×2 (08:17→20:47)
[2019-09-03] MEDS: POLYETHYLENE GLYCOL POWDER 17 GM PACK PO SCH ×2 (08:18→20:54)
[2019-09-03] MEDS: ONDANSETRON 4 MG/2 ML VIAL IV PRN (10:23)
[2019-09-03] MEDS: ERTAPENEM 1,000 MG in SODIUM CHLORIDE 0.9% 100 ML IV SCH (11:45)
[2019-09-03] MEDS ORDERED: MAGNESIUM SULF RIDER 2 GM in PREMIX 1 EACH IV ONE (20:06)
[2019-09-03] MEDS: ENOXAPARIN 40 MG/0.4 ML SYRINGE SUBCUT SCH (20:47)
[2019-09-04] MEDS: DEXT 5% NACL 0.45% KCL 20 MEQ 20 MEQ/1,000 ML BAG IV SCH ×3 (02:20→21:24)
[2019-09-04] MEDS: oxyCODONE/ACETAMINOPHEN 5-325 MG TABLET PO PRN ×4 (02:23→20:09)
[2019-09-04 05:27] LABS: Basophils % 0.6 % (0.0-0.8); Eosinophils # 0.1 10*3/uL (0.0-0.87); Eosinophils % 2.5 % (0.00-10.9); Hematocrit 25.2 VOL% (35.7-47.0); Hemoglobin 7.8 GM/DL (12.0-16.0); Immature Granulocytes % 0.4 %; Immature Granulocytes Absolute 0.02 #; Lymphocytes % 21.3 % (21.3-54.2); Mean Corpuscular Volume 84.6 FL (87-102); Monocytes % 12.9 % (1.7-12.7); Neutrophils % 62.3 % (38.7-73.9); Platelet Count 390 T/CUMM (130-400); Red Blood Count 2.98 MC/CUMM (3.8-5.5); Red Cell Distribution Width 15.9 % (9.3-17.3); White Blood Count 4.9 T/CUMM (4-12)
[2019-09-04 05:43] LABS: Calcium 8.2 MG/DL (8.5-10.1); Osmolality,Calculated 283.8 MOS/KG (273-304)
[2019-09-04] MEDS: MULTIVITAMIN (BEROCCA) TABLET PO SCH (08:29)
[2019-09-04] MEDS: GABAPENTIN 400 MG CAPSULE PO SCH ×3 (08:29→20:09)
[2019-09-04] MEDS: amLODIPine 10 MG TABLET PO SCH (08:29)
[2019-09-04] MEDS: ZINC GLUCONATE 50 MG TABLET PO SCH (08:29)
[2019-09-04] MEDS: ASCORBIC ACID 500 MG TABLET PO SCH ×2 (08:29→20:09)
[2019-09-04] MEDS: CYPROHEPTADINE 4 MG TABLET PO SCH ×3 (08:29→20:09)
[2019-09-04] MEDS: METOPROLOL TARTRATE 25 MG TABLET PO SCH ×2 (08:30→20:09)
[2019-09-04] MEDS: SERTRALINE 50 MG TABLET PO SCH (08:30)
[2019-09-04] MEDS: DOCUSATE SODIUM 100 MG CAPSULE PO SCH ×2 (08:30→20:09)
[2019-09-04] MEDS: CHOLECALCIFEROL 1,000 UNIT TABLET PO SCH (08:30)
[2019-09-04] MEDS: LINACLOTIDE 145 MCG CAPSULE PO SCH (08:30)
[2019-09-04] MEDS: POLYETHYLENE GLYCOL POWDER 17 GM PACK PO SCH ×2 (08:31→20:09)
[2019-09-04] MEDS: ERTAPENEM 1,000 MG in SODIUM CHLORIDE 0.9% 100 ML IV SCH (09:56)
[2019-09-04] MEDS: MORPHINE 4 MG/1 ML VIAL IV PRN ×2 (10:05→17:51)
[2019-09-04 11:04] LABS: Hemoglobin A1 (Alkaline) 67.2 % (96.5-98.5); Hemoglobin A2 (Alkaline) 2.7 % (1.5-3.5)
[2019-09-04 11:05] LABS: Hemoglobin S (Alkaline) 30.1 %
[2019-09-05] MEDS: POLYETHYLENE GLYCOL POWDER 17 GM PACK PO SCH ×2 (02:17→09:18)
[2019-09-05] MEDS: MORPHINE 4 MG/1 ML VIAL IV PRN ×3 (02:21→10:34)
[2019-09-05 05:39] LABS: Basophils % 0.3 % (0.0-0.8); Eosinophils # 0.1 10*3/uL (0.0-0.87); Eosinophils % 1.7 % (0.00-10.9); Hematocrit 25.6 VOL% (35.7-47.0); Hemoglobin 7.9 GM/DL (12.0-16.0); Immature Granulocytes % 0.8 %; Immature Granulocytes Absolute 0.05 #; Lymphocytes # 1.2 10*3/uL (1.4-4.0); Lymphocytes % 20.7 % (21.3-54.2); Mean Corpuscular HGB Conc 30.9 GM/DL (32-36); Mean Corpuscular Volume 84.2 FL (87-102); Mean Platelet Volume 9.8 FL (9.6-12.0); Monocytes % 12.5 % (1.7-12.7); Platelet Count 432 T/CUMM (130-400); Red Blood Count 3.04 MC/CUMM (3.8-5.5); Red Cell Distribution Width 16.1 % (9.3-17.3)
[2019-09-05 05:52] LABS: Calcium 8.3 MG/DL (8.5-10.1); Osmolality,Calculated 284.7 MOS/KG (273-304)
[2019-09-05] MEDS: LINACLOTIDE 145 MCG CAPSULE PO SCH (09:17)
[2019-09-05] MEDS: MULTIVITAMIN (BEROCCA) TABLET PO SCH (09:18)
[2019-09-05] MEDS: CHOLECALCIFEROL 1,000 UNIT TABLET PO SCH (09:18)
[2019-09-05] MEDS: GABAPENTIN 400 MG CAPSULE PO SCH ×3 (09:18→20:06)
[2019-09-05] MEDS: DOCUSATE SODIUM 100 MG CAPSULE PO SCH ×2 (09:18→20:07)
[2019-09-05] MEDS: CYPROHEPTADINE 4 MG TABLET PO SCH ×3 (09:18→20:07)
[2019-09-05] MEDS: ASCORBIC ACID 500 MG TABLET PO SCH ×2 (09:18→20:07)
[2019-09-05] MEDS: amLODIPine 10 MG TABLET PO SCH (09:18)
[2019-09-05] MEDS: SERTRALINE 50 MG TABLET PO SCH (09:19)
[2019-09-05] MEDS: ZINC GLUCONATE 50 MG TABLET PO SCH (09:19)
[2019-09-05] MEDS: ERTAPENEM 1,000 MG in SODIUM CHLORIDE 0.9% 100 ML IV SCH (09:34)
[2019-09-05] MEDS: METOPROLOL TARTRATE 25 MG TABLET PO SCH ×2 (09:34→20:06)
[2019-09-05] MEDS ORDERED: PROPOFOL 200 MG/20 ML VIAL IV ONE (12:25)
[2019-09-05] MEDS ORDERED: LIDOCAINE 2% 5 ML VIAL ONE (12:25)
[2019-09-05] MEDS ORDERED: SEVOFLURANE 1 UNIT/15 MINUTE INH ONE (12:25)
[2019-09-05] MEDS ORDERED: DEXAMETHASONE 4 MG/1 ML VIAL ONE (12:26)
[2019-09-05] MEDS ORDERED: ONDANSETRON 4 MG/2 ML VIAL ONE (12:26)
[2019-09-05] MEDS ORDERED: fentaNYL 100 MCG/2 ML VIAL ONE (12:26)
[2019-09-05] MEDS ORDERED: MIDAZOLAM 2 MG/2 ML VIAL ONE (12:26)
[2019-09-05] MEDS ORDERED: ONDANSETRON 4 MG/2 ML VIAL IV PRN (12:39)
[2019-09-05] MEDS: MORPHINE 10 MG/1 ML VIAL IV PRN ×3 (12:43→13:07)
[2019-09-05] MEDS: oxyCODONE/ACETAMINOPHEN 5-325 MG TABLET PO PRN ×2 (15:21→20:06)
[2019-09-05] MEDS: DEXT 5% NACL 0.45% KCL 20 MEQ 20 MEQ/1,000 ML BAG IV SCH (22:00)
[2019-09-06] MEDS: POLYETHYLENE GLYCOL POWDER 17 GM PACK PO SCH ×3 (03:34→21:26)
[2019-09-06] MEDS: oxyCODONE/ACETAMINOPHEN 5-325 MG TABLET PO PRN ×3 (06:17→19:12)
[2019-09-06 06:22] LABS: Basophils % 0.2 % (0.0-0.8); Eosinophils % 0.2 % (0.00-10.9); Hemoglobin 8.1 GM/DL (12.0-16.0); Immature Granulocytes % 1.7 %; Immature Granulocytes Absolute 0.09 #; Lymphocytes # 1.2 10*3/uL (1.4-4.0); Lymphocytes % 22.8 % (21.3-54.2); Mean Corpuscular HGB Conc 31.2 GM/DL (32-36); Mean Corpuscular Volume 83.6 FL (87-102); Mean Platelet Volume 9.8 FL (9.6-12.0); Monocytes % 11.6 % (1.7-12.7); NRBC # 0.02 10*3/uL; Neutrophils % 63.5 % (38.7-73.9); Platelet Count 472 T/CUMM (130-400); Red Blood Count 3.11 MC/CUMM (3.8-5.5); White Blood Count 5.4 T/CUMM (4-12)
[2019-09-06 06:44] LABS: Calcium 8.5 MG/DL (8.5-10.1); Osmolality,Calculated 289.6 MOS/KG (273-304)
[2019-09-06] MEDS: ZINC GLUCONATE 50 MG TABLET PO SCH (08:37)
[2019-09-06] MEDS: LINACLOTIDE 145 MCG CAPSULE PO SCH (08:37)
[2019-09-06] MEDS: CHOLECALCIFEROL 1,000 UNIT TABLET PO SCH (08:38)
[2019-09-06] MEDS: amLODIPine 10 MG TABLET PO SCH (08:38)
[2019-09-06] MEDS: ASCORBIC ACID 500 MG TABLET PO SCH ×2 (08:38→21:28)
[2019-09-06] MEDS: DOCUSATE SODIUM 100 MG CAPSULE PO SCH ×2 (08:38→21:28)
[2019-09-06] MEDS: SERTRALINE 50 MG TABLET PO SCH (08:38)
[2019-09-06] MEDS: CYPROHEPTADINE 4 MG TABLET PO SCH ×3 (08:38→21:28)
[2019-09-06] MEDS: GABAPENTIN 400 MG CAPSULE PO SCH ×3 (08:38→21:28)
[2019-09-06] MEDS: MULTIVITAMIN (BEROCCA) TABLET PO SCH (08:38)
[2019-09-06] MEDS: METOPROLOL TARTRATE 25 MG TABLET PO SCH ×2 (08:38→21:28)
[2019-09-06] MEDS ORDERED: MAGNESIUM SULF RIDER 2 GM in PREMIX 1 EACH IV PRN (10:38)
[2019-09-06] MEDS ORDERED: MAGNESIUM SULF RIDER 4 GM in PREMIX 1 EACH IV PRN (10:38)
[2019-09-06] MEDS: ERTAPENEM 1,000 MG in SODIUM CHLORIDE 0.9% 100 ML IV SCH (11:08)
[2019-09-06] MEDS: MORPHINE 4 MG/1 ML VIAL IV PRN ×2 (17:04→21:28)
[2019-09-06] MEDS: DEXT 5% NACL 0.45% KCL 20 MEQ 20 MEQ/1,000 ML BAG IV SCH (21:25)
[2019-09-06] MEDS: ENOXAPARIN 40 MG/0.4 ML SYRINGE SUBCUT SCH (21:26)
[2019-09-07] MEDS: oxyCODONE/ACETAMINOPHEN 5-325 MG TABLET PO PRN ×3 (00:08→13:28)
[2019-09-07] MEDS: MORPHINE 4 MG/1 ML VIAL IV PRN ×2 (04:04→09:49)
[2019-09-07 05:37] LABS: Basophils # 0.1 10*3/uL (0.0-0.2); Basophils % 0.9 % (0.0-0.8); Eosinophils # 0.1 10*3/uL (0.0-0.87); Eosinophils % 1.5 % (0.00-10.9); Hematocrit 26.1 VOL% (35.7-47.0); Immature Granulocytes Absolute 0.11 #; Lymphocytes # 1.4 10*3/uL (1.4-4.0); Lymphocytes % 26.1 % (21.3-54.2); Mean Corpuscular HGB Conc 30.7 GM/DL (32-36); Mean Corpuscular Volume 84.5 FL (87-102); Mean Platelet Volume 9.9 FL (9.6-12.0); Monocytes % 11.9 % (1.7-12.7); NRBC # 0.04 10*3/uL; Neutrophils % 57.6 % (38.7-73.9); Platelet Count 463 T/CUMM (130-400); Red Blood Count 3.09 MC/CUMM (3.8-5.5); Red Cell Distribution Width 16.5 % (9.3-17.3); White Blood Count 5.4 T/CUMM (4-12)
[2019-09-07 05:59] LABS: Calcium 8.7 MG/DL (8.5-10.1); Osmolality,Calculated 281.1 MOS/KG (273-304)
[2019-09-07] MEDS: MULTIVITAMIN (BEROCCA) TABLET PO SCH (08:53)
[2019-09-07] MEDS: ZINC GLUCONATE 50 MG TABLET PO SCH (08:53)
[2019-09-07] MEDS: ASCORBIC ACID 500 MG TABLET PO SCH (08:53)
[2019-09-07] MEDS: DOCUSATE SODIUM 100 MG CAPSULE PO SCH (08:54)
[2019-09-07] MEDS: amLODIPine 10 MG TABLET PO SCH (08:54)
[2019-09-07] MEDS: SERTRALINE 50 MG TABLET PO SCH (08:54)
[2019-09-07] MEDS: GABAPENTIN 400 MG CAPSULE PO SCH (08:54)
[2019-09-07] MEDS: CHOLECALCIFEROL 1,000 UNIT TABLET PO SCH (08:54)
[2019-09-07] MEDS: METOPROLOL TARTRATE 25 MG TABLET PO SCH (08:54)
[2019-09-07] MEDS: POLYETHYLENE GLYCOL POWDER 17 GM PACK PO SCH (08:55)
[2019-09-07] MEDS: LINACLOTIDE 145 MCG CAPSULE PO SCH (08:55)
[2019-09-07] MEDS: CYPROHEPTADINE 4 MG TABLET PO SCH (08:55)
[2019-09-07] MEDS ORDERED: SULFAMETHOX/TRIMETHOPRIM 800-160 MG TABLET PO SCH (09:00)
[2019-09-07] MEDS ORDERED: METAXALONE 800 MG TABLET PO ONE (12:15)
[2019-09-07 12:53] VITALS: BP 131/82
== END 2019-09-07 15:23 | disposition home health service (06) | DRG 264 ==
LOC: N.ED 16:31 → N.EDINP 18:39 → SUATTDRO 18:39 → N.5E 19:53
PROVIDERS: ADMIT Hospitalist; ATTEND Internal Medicine